=== PATIENT | female | born 1985 | race Caucasian/White ===

== ENCOUNTER 2023-09-03 11:11 | Emergency (ER) | payer OTHER, SELFPAY ==
[2023-09-03 11:24] VITALS: BP 138/95; PULSE 86; RESP 20; TEMP 36.9; O2SAT 100; BMI 22.9
--- NOTE | 2023-09-03 12:02 | ED.GENADULT ---
HPI - General Adult General Date Seen: 09/03/23 Chief complaint: Unspecified Complaint, Adult Stated complaint: fentanyl withdrawal Time Seen by Provider: 09/03/23 11:45 History of Present Illness HPI narrative: 37-year-old female presenting to the ER today, brought in by her father, for fentanyl and opiate withdrawal. Patient reports that she is a opiate user. She usually smokes fentanyl, roughly half a g per day. She also takes perk 30s a few times per day. She says her last use was 2 nights ago, on Monday night. She began to feel sick last night with symptoms of goose bumps, nausea, diarrhea, restlessness, body aches. She says she feels anxious ( however she is actually drowsy and somewhat somnolent in her bed). She also occasionally uses marijuana and occasionally uses methamphetamine. She had been treated once, for 5 days, in the past for opiate withdrawal with Suboxone while she was in [facility]. She does not have any long-term maintenance therapy. She is scheduled to enter an intensive outpatient opiate treatment program called [facility], which is in [place], 2 days from now, on Monday. She is requesting Suboxone. She also endorses that her boyfriend is currently in penitentiary. They had been in a sexual relationship for about 6 or 7 months. Last sexual contact was July 15. She recently that her boyfriend might have AIDS. She has also been having vaginal discharge so she is worried about possible STDs and requests testing. She does not think she is because she has had previous tubal ligation. Related Data Previous Rx's Medication Instructions Recorded buprenorphine 8 mg-naloxone 2 mg 1 film buccal DAILY #2 ea 09/03/23 sublingual film (Suboxone) doxycycline hyclate 100 mg capsule 100 mg PO BID #14 caps 09/03/23 tinidazole 500 mg tablet 2 g (4 x 500 mg) PO ONCE 1 day #4 09/03/23 tabs Allergies Allergy/AdvReac Type Severity Reaction Status Date / Time Penicillins Allergy Intermediate Verified 09/03/23 11:23 [facility] Social History Smoking Status: Unknown if ever smoked Non-prescribed substance use: opiods/painkillers Exam Narrative: Exam Narrative: Constitutional: Appears well-developed and well-nourished. Awake but somewhat drowsy. Lying back on her pillow with her arms flopped over her face. Speech is somewhat slow but not slurred. She says she feels restless but she actually looks sedated.. Non toxic. HENT: Head: Atraumatic. Nose: Nose normal. Mouth/Throat: Oral mucosa is clear and moist. no trismus. Pharynx normal. Tonsils symmetric. No tonsillar enlargement, erythema, or exudate. Eyes: Conjunctivae normal. EOM normal. Pupils Are dilated, about 7 or 8 mm bilaterally, but areequal, round, and reactive to light. No scleral icterus. Neck: Normal range of motion. Neck supple. No tracheal deviation present. Cardiovascular: Normal rate, heart rate 84 by my count, regular rhythm. No gallop. No friction rub. No murmur heard. Symmetric radial artery pulses Pulmonary/Chest: Effort normal. No stridor. No respiratory distress. No wheezes. No rales. No rhonchi . No tenderness. Abdominal: Soft. Bowel sounds normal. No distension. No mass. No tenderness. No rebound. No guarding. Pelvic: Performed with female franchise business consultant. External genitalia normal. Vaginal mucosa normal. There is some thin whitish vaginal and cervical discharge. No definite cervicitis or strawberry cervix. Endocervical swab obtained and sent to lab for analysis. Bimanual exam deferred. Musculoskeletal: RUE: Normal range of motion. No tenderness. No deformity LUE: Normal range of motion. No tenderness. No deformity RLE: Normal range of motion. No edema. No tenderness. No deformity LLE: Normal range of motion. No edema. No tenderness. No deformity Neurological: Alert and oriented to person, place, and time. Normal strength. CN II-VII intact. No sensory deficit. GCS eye subscore is 4. GCS verbal subscore is 5. GCS motor subscore is 6. Normal coordination Skin: no diaphoresis, sweating, or pyelo erection. Skin is warm and dry. No rash noted. No pallor. Normal capillary refill. Psychiatric: Somewhat sedated, sleepy. Endorses history of opiate use. She says she last used Monday evening, about 36 hours ago, and does have dilated pupils. However I suspect that in the interval she has been using some other substances which are causing drowsiness. Or possibly co ingestion of a sympathomimetic to cause pupillary dilation and an opiate to cause drowsiness. Initial COWS Scale is 5. Const: Vital Signs, click to edit/add: Vital Signs - 24 hr 09/03/23 11:24 Temperature 98.5 F Pulse Rate [Pulse Oximeter] 86 Respiratory Rate 20 Blood Pressure [Ri ght Upper Arm] 138/95 H Pulse Oximetry 100 Oxygen Delivery Me thod Room Air Course Course ED Course: Recheck-about 130. Patient was asking to leave. She was more alert, restless. I rechecked her CO WS scale. It is gone up to 9. Suboxone ordered 8 mg/2 mg. Patient understands that her test for STDs will not result today. Were going to empirically treat for gonorrhea (Rocephin 500 mg IM) and chlamydia (Azithromycin 1 g p.o. here, doxycycline 100 mg b.i.d. for 7 days as well). Will not empirically treat for Trichomonas because she is allergic to Flagyl. She does not have any high-risk sexual exposure in the past 72 hours so does not need post exposure prophylaxis for HIV. She gave me her dad's cell phone number [phone] and says that will be reliable number to contact her tomorrow. She would like results to go directly to her, and not to her father. Vital Signs Vital signs: Initial Vital Signs Temperature 98.5 F 09/03/23 11:24 Temperature Source Temporal Artery Scan 09/03/23 11:24 Pulse Rate 86 09/03/23 11:24 Respiratory Rate 20 09/03/23 11:24 Blood Pressure 138/95 H 09/03/23 11:24 Blood Pressure Mean 109 H 09/03/23 11:24 Pulse Oximetry 100 09/03/23 11:24 Oxygen Delivery Method Room Air 09/03/23 11:24 Vital Signs Temperature 98.5 F 09/03/23 11:24 Pulse Rate 86 09/03/23 11:24 Respiratory Rate 20 09/03/23 11:24 Blood Pressure 138/95 H 09/03/23 11:24 Pulse Oximetry 100 09/03/23 11:24 Oxygen Delivery Method Room Air 09/03/23 11:24 Temperature 98.5 F 09/03/23 11:24 Pulse Rate 86 09/03/23 11:24 Respiratory Rate 20 09/03/23 11:24 Blood Pressure 138/95 H 09/03/23 11:24 Pulse Oximetry 100 09/03/23 11:24 Oxygen Delivery Method Room Air 09/03/23 11:24 Medications Administered Medications: Discontinued Medications Generic Name Dose Route Start Last Admin Trade Name Perri PRN Reason Stop Dose Admin Azithromycin 1,000 mg 09/03/23 12:08 09/03/23 12:46 Azithromycin 250 Mg Tablet PO 09/03/23 12:09 1,000 mg ONCE ONE Administration Buprenorphine/Naloxone 1 each 09/03/23 13:45 09/03/23 13:52 Buprenorphine-Nalox 8-2mg Film SUBLINGUAL 09/03/23 13:46 1 each ONCE ONE Administration Ceftriaxone Sodium 500 mg 09/03/23 12:08 09/03/23 12:54 Ceftriaxone 500 Mg Vial IM 09/03/23 12:09 500 mg ONCE ONE Administration Doxycycline Hyclate 100 mg 09/03/23 12:08 09/03/23 12:46 Doxycycline Hyclate 100 Mg PO 09/03/23 12:09 100 mg ONCE ONE Administration Lidocaine HCl 1 ml 09/03/23 12:08 09/03/23 12:54 Lidocaine 1% 5 Ml (Pf) 5 Ml Vial IM 1 ml DIRECTED PRN Administration Pain Medical Decision Making MDM Narrative Medical decision making narrative: 37-year-old female with 2 presenting concerns here in the ER. 1. Opiate use disorder and opiate withdrawal. She does report that she is an opiate addict. She uses street fentanyl and oxycodone. She reports that her last use was actually about 36 hours ago but with presenting drowsiness, suspect other substance is probably used just prior to arrival. She is concerned about evolving opiate withdrawal and has symptoms of that including nausea, diarrhea, anxiety, restlessness, piloerection. She has been treated in the past with Suboxone and desires that. Initial COWS scale is 5, and I felt that the risk of Suboxone Administration at arrival would probably be more likely to precipitate worsening withdrawal, then to help so we held off. Repeat CO WS is rising up to 9 so Suboxone 8 mg sublingually administered here in the ER. Prescription for Suboxone that she can use tomorrow and again on Monday per sent to her pharmacy. She is scheduled to enter into an opiate treatment program beginning on Monday, less than 48 hours from now. Therefore will provide 2 additional days of Suboxone therapy. She will get further treatment through her program. 2. She is also concerned about STD exposures. She is having some vaginal discharge. She is concerned because someone told her boyfriend is HIV positive. She has not had sexual contact with him since July so would not need emergency post exposure prophylaxis. We did send serum HIV swab. Result pending at the time of discharge. Discussed with the patient that we will contact her tomorrow if her results are positive. She provided her father's cellphone number as a reliable contact number [phone]. Informed her that if any of her outstanding tests are positive will contact her by phone tomorrow. We will not leave a voicemail with any test information and will not be give test results with her father, only with the patient directly. She also understands that she may be in the window open to read for HIV and should have a follow-up test in 1 month, evening if labs drawn today are negative. We will empirically treat with Rocephin and azithromycin here in the ER for gonorrhea and chlamydia. Also 7 days of doxycycline for chlamydia. Patient has previous exposure to trick, but also has hives when she takes metronidazole. Therefore will not administer empiric Flagyl. The patient left the ER before all of her test results came back. At this point vaginitis screen is positive for Trichomonas vaginalis. otherwise negative. Positive for chlamydia. Positive for gonorrhea. Prescription for Tinidazole 2 g p.o. x1 dose sent to her pharmacy at [facility]. Patient updated about her gonorrhea, chlamydia, Trichomonas tests by phone at 8:30 p.m. on 09/03. Additionally, has a phone call at 8:30 p.m. she was feeling much better in terms of her opiate withdrawal. test negative. Treponemal pallidum testing pending. HIV pending. Reiterated the patient that we will call if blood test results are positive. We will only give results to her over the phone, not her father and not on voicemail. We will not call with negative test results. Lab Data Labs: Lab Results 09/03/23 09/03/23 Range/Units 12:55 13:54 HCG, Qual Negative (Negative) Vaginal Bacterial Vaginosis POSITIVE (No Detected) Vaginal Adriana species NOT DETECTED (No Detected) Vag C. glabrata/krusei NOT DETECTED (No Detected) Vag T. vaginalis DETECTED A (No Detected) C.trachomatis Ampl DNA DETECTED A (No Detected) N.gonorrhoeae Ampl DNA DETECTED A (No Detected) Discharge Plan Discharge Clinical Impression: Opiate withdrawal, Concern about STD in female without diagnosis, Opiate abuse, continuous, Vaginal discharge, Trichomonal vaginitis, Gonorrhea, Chlamydia Patient Disposition: Home, Self-Care Condition: Stable Instructions: Vaginal Discharge (ED), Narcotic Withdrawal (ED), Narcotic Use Disorder (ED) Additional Instructions: We will call you tomorrow at your provided phone number [phone] to inform you if any of your pending test results are abnormal. Will not call you if the tests are normal. If you do not answer the phone, we will give you a phone number to call back but we will not leave test results on voicemail. Please take the prescribed antibiotics until they are gone. Take one Suboxone sublingually again tomorrow and 1 initial Suboxone on Monday to help with opiate withdrawal symptoms. Follow-up with your treatment center for further Suboxone. I have sent prescriptions to the [facility] here in [place]. Prescriptions: New doxycycline hyclate 100 mg capsule 100 mg PO BID Qty: 14 0RF buprenorphine-naloxone [Suboxone] 8-2 mg film 1 film buccal DAILY Qty: 2 0RF tinidazole 500 mg tablet 2 g PO ONCE 1 Days Qty: 4 0RF Follow Up/Referrals: Provider,Not a Local [Primary Care Provider] - Stand Alone Forms: [employer] Info Instructions
[2023-09-03] MEDS: DOXYCYCLINE HYCLATE 100 MG PO (12:46)
[2023-09-03] MEDS: AZITHROMYCIN 250 MG TABLET 1000 MG PO (12:46)
[2023-09-03] MEDS: LIDOCAINE 1% 5 ml (pf) 5 ML VIAL 1 ML IM (12:54)
[2023-09-03] MEDS: cefTRIAXone 500 MG VIAL IM (12:54)
[2023-09-03] MEDS: BUPRENORPHINE-NALOX 8-2MG FILM 1 EACH SUBLINGUAL (13:52)
[2023-09-03 14:12] LABS: HCG Qualitative Serum* Negative (Negative)
--- NOTE | 2023-09-03 14:26 | ED.NURSE ---
pt walked out of ED before DC.
[2023-09-03 15:17] LABS: Bacterial Vaginosis* POSITIVE (No Detected); Candida glab/krus NOT DETECTED (No Detected); Candida species NOT DETECTED (No Detected); Trichomonas vaginalis DETECTED (No Detected)
[2023-09-03 16:46] LABS: Chlamydia DNA Amplified* DETECTED (No Detected); GC DNA Amplified* DETECTED (No Detected)
[2023-09-04 04:15] LABS: HIV 1/2/P24 Combo Screen* Negative (Negative)
[2023-09-07 01:46] LABS: Treponema pallidum VDRL Serum Non Reactive (Non Reactive)
== END 2023-09-03 14:30 | disposition home or self-care (01) ==
PROVIDERS: Emergency Provider Emergency Medicine
DX: F11.23 Opioid dependence with withdrawal (principal); A74.9 Chlamydial infection, unspecified; A54.9 Gonococcal infection, unspecified
CPT/HCPCS: 36415; 81513; 84703; 86592; 86593; 86703; 87481; 87491; 87591; 87661; 96372; 99284; A9270; J0574; J0696